=== PATIENT | male | born 1985 | race Caucasian/White ===

== ENCOUNTER → 2017-11-26 | Outpatient (CLI) | payer OTHER, BC ==
[~2017-11-26] MED LIST: AMO500 PO; DAY QUIL; ONDA4TAB PO; PSE30 PO
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
== END ==
LOC: RAD 14:06
PROVIDERS: ATTEND Family Medicine
DX: M25.552 Pain in left hip (principal)

== ENCOUNTER 2018-03-04 08:30 | Outpatient (RCR) | payer OTHER, BC ==
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
--- NOTE | 2018-01-14 17:50 | PT PLAN OF CARE ---
Physician: José Miguel Srerano DO Patient is being seen: 2x/week Therapist: Bhaskar Dong, PT, DPT Medical Diagnosis: Pain in L hip Treatment Diagnosis: same, low back pain with radiating pain to his L hip Date of Onset: 11/16/17 Date of Initial Evaluation: 12/14/17 Date patient was last seen: 01/14/18 Number of treatments: 10 Number of cancellations/No shows: 1 INTERVENTIONS: Manual Therapy/STM/MET Strengthening/condition Range of Motion Spinal Stabilization Work Hardening/Cond Stretching Neuromuscular Re-ed Closed Chain Program Posture/Body mechanics Home Exercise Program Therapeutic Activities GOALS: 1 week: Pt will demonstrate centralized low back pain to improve function and QOL. MET 3 weeks: Pt will demonstrate abolished low back pain and abolished radiating pain to improve function and QOL. Progressing 6 weeks: Pt will demonstrate a return to prior level of function without any low back pain or radiating pain to improve function and QOL. Progressing PATIENT'S GOAL: reduce pain so that he can work on equipment without having a lot of pain following Status of Patient's Goals: Progressing Patient Compliance: Good Prognosis: Excellent Reasons for continuing therapy: This is a progress note for Panchito Rios. He reports that he continues to have pain following extending periods of being bent over. Other than the he reports that he no longer has any low back or L posterior hip pain. He continues to demonstrate a directional preference and a continued provisional classification of derangement that continues to respond to extension based specific exercise. We will continue to perform specific exercise along with strength training to return him to prior level of function. Posture: He demonstrated minimal postural deficits with forward head, rounded shoulders, increased thoracic kyphosis, and normal lumbar curvature. ROM: Trunk AROM: flexion: NIL with muscular end feel. extension: NIL with muscular end feel. side gliding R: NIL with muscular end feel. side gliding L: NIL with muscular end feel. He did demonstrate increased pain returning from flexion to resting position. Palpation: TTP: surrounding area around the L PSIS Special Tests: Repeated flexion in lying: stretch felt during the test and worse (increased L hip pain) following the test. However, there was no changes within his trunk AROM. Repeated extension in lying: stretch felt during the test and better following the test. Mobility: Independent If you have any questions, please contact me at [phone]. Thank you, Bhaskar Dong, PT, DPT MTDD
--- NOTE | 2018-02-25 18:09 | PT PLAN OF CARE ---
Physician: José Miguel Serrano DO Patient is being seen: 2x/week Therapist: Bhaskar Dong, PT, DPT Medical Diagnosis: Pain in L hip Treatment Diagnosis: same, low back pain with radiating pain to his L hip Date of Onset: 11/16/17 Date of Initial Evaluation: 12/14/17 Date patient was last seen: 02/25/18 Number of treatments: 21 Number of cancellations/No shows: 2 INTERVENTIONS: Manual Therapy/STM/MET Strengthening/condition Range of Motion Spinal Stabilization Work Hardening/Cond Stretching Neuromuscular Re-ed Closed Chain Program Posture/Body mechanics Home Exercise Program Therapeutic Activities GOALS: 1 week: Pt will demonstrate centralized low back pain to improve function and QOL. MET 3 weeks: Pt will demonstrate abolished low back pain and abolished radiating pain to improve function and QOL. MET 6 weeks: Pt will demonstrate a return to prior level of function without any low back pain or radiating pain to improve function and QOL. Progressing. PATIENT'S GOAL: reduce pain so that he can work on equipment without having a lot of pain following Status of Patient's Goals: Progressing well Patient Compliance: Good Prognosis: Excellent Reasons for continuing therapy: This is progress note for Panchito Rios. He reports that he is doing much better. 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 He reports that he has yet to test his low back like he normally does and states that he will test his low back this weekend. Overall, he states that it feels much improved and denies any current pain. He demonstrated full trunk AROM, abolished low back pain, abolished radiating pain to his L hip, and significant improvements in core and B LE strength. We will continue to improve core and B LE strength and return to prior level of function. We will know more following this weekend on how his low back tolerated his normal work around the house and then decide how to proceed with PT. If he tolerates the work well with no increase in low back pain , he will be discharged from PT to [facility]. If he continues to have pain, we will continue with PT. Posture: He demonstrated minimal postural deficits with forward head, rounded shoulders, increased thoracic kyphosis, and normal lumbar curvature. ROM: Trunk AROM: flexion: NIL with muscular end feel. extension: NIL with muscular end feel. side gliding R: NIL with muscular end feel. side gliding L: NIL with muscular end feel. Strength: core: 4/5, B LE's: 4+/5 Mobility: Independent If you have any questions, please contact me at [phone]. Thank you, Bhaskar Dong, PT, DPT [facility]
== END 2018-03-14 ==
LOC: PT 08:30
PROVIDERS: ATTEND Family Medicine
DX: M25.552 Pain in left hip (principal); M54.5 Low back pain
CPT/HCPCS: 97161

== ENCOUNTER 2018-03-25 08:15 | Outpatient (RCR) | payer OTHER, BC ==
--- NOTE | 2018-03-16 15:45 | PT PLAN OF CARE ---
Physician: José Miguel Serrano DO Patient is being seen: 2x/week Therapist: Bhaskar Dong, PT, DPT Medical Diagnosis: Pain in L hip Treatment Diagnosis: same, low back pain with radiating pain to his L hip Date of Onset: 11/16/17 Date of Initial Evaluation: 12/14/17 Date patient was last seen: 03/16/18 Number of treatments: 24 Number of cancellations/No shows: 2 INTERVENTIONS: Manual Therapy/STM/MET Strengthening/condition Range of Motion Spinal Stabilization Work Hardening/Cond Stretching Neuromuscular Re-ed Closed Chain Program Posture/Body mechanics Home Exercise Program Therapeutic Activities GOALS: 1 week: Pt will demonstrate centralized low back pain to improve function and QOL. MET 3 weeks: Pt will demonstrate abolished low back pain and abolished radiating pain to improve function and QOL. MET 6 weeks: Pt will demonstrate a return to prior level of function without any low back pain or radiating pain to improve function and QOL. Progressing. PATIENT'S GOAL: reduce pain so that he can work on equipment without having a lot of pain following Status of Patient's Goals: Progressing well Patient Compliance: Good Prognosis: Excellent Reasons for continuing therapy: This is progress note for Panchito Rios. He reports that his low back pain has significantly improved. He reports that every once in a while he will get a twing of pain that lasts for a few seconds and then goes away. He reports that he has returned to all of his activities without an increase in low back pain. He reports that he would like to come to PT for one more week to learn his home exercise program and then feels like he could be discharged. He demonstrates full trunk AROM in all directions with normal end feels. He demonstrates increased core and B LE strength. We will verify that he is independent on his home exercise program and then he will be discharged from PT to [facility] in the next week. Posture: He demonstrated minimal postural deficits with forward head, rounded shoulders, increased thoracic kyphosis, and normal lumbar curvature. ROM: Trunk AROM: flexion: NIL with muscular end feel. extension: NIL with muscular end feel. side gliding R: NIL with muscular end feel. side gliding L: NIL with muscular end feel. Strength: core: 4+/5, B LE's: 4+/5 Mobility: Independent If you have any questions, please contact me at [phone]. Thank you, Bhaskar Dong, PT, DPT MTDD
--- NOTE | 2018-03-26 08:32 | PT PLAN OF CARE ---
Physician: José Miguel Serrano DO Patient is being seen: 2x/week Therapist: Bhaskar Dong, PT, DPT Medical Diagnosis: Pain in L hip Treatment Diagnosis: same, low back pain with radiating pain to his L hip Date of Onset: 11/16/17 Date of Initial Evaluation: 12/14/17 Date patient was last seen: 03/25/18 Number of treatments: 27 Number of cancellations/No shows: 4 INTERVENTIONS: Manual Therapy/STM/MET Strengthening/condition Range of Motion Spinal Stabilization Work Hardening/Cond Stretching Neuromuscular Re-ed Closed Chain Program Posture/Body mechanics Home Exercise Program Therapeutic Activities GOALS: 1 week: Pt will demonstrate centralized low back pain to improve function and QOL. MET 3 weeks: Pt will demonstrate abolished low back pain and abolished radiating pain to improve function and QOL. MET 6 weeks: Pt will demonstrate a return to prior level of function without any low back pain or radiating pain to improve function and QOL. MET. PATIENT'S GOAL: reduce pain so that he can work on equipment without having a lot of pain following Status of Patient's Goals: Progressing well Patient Compliance: Good Prognosis: Excellent Reasons for continuing therapy: This is discharge note for Panchito Rios. He reports that he is doing well. He reports that he felt some discomfort with sustained flexion, but once he came to standing and got out of the position his pain abolished instantly. He reports that he is independent on his home exercise program. As far as his injury his classification is mechanically inconclusive that improved with stabilization exercises targeting his core and B LE's. He continues to stay painfree as long as he continues with his home exercise program. He demonstrates full trunk AROM. He has met all of his goals. As a result, he will be discharged from PT to [facility]. Posture: He demonstrated minimal postural deficits with forward head, rounded shoulders, increased thoracic kyphosis, and normal lumbar curvature. ROM: Trunk AROM: flexion: NIL with muscular end feel. extension: NIL with muscular end feel. side gliding R: NIL with muscular end feel. side gliding L: NIL with muscular end feel. Strength: core: 4+/5, B LE's: 4+/5 Mobility: Independent If you have any questions, please contact me at [phone]. Thank you, Bhaskar Dong, PT, DPT [facility]
== END 2018-03-25 14:08 | disposition home or self-care (01) ==
LOC: PT 08:15
PROVIDERS: ATTEND Family Medicine
DX: M25.552 Pain in left hip (principal); M54.5 Low back pain